=== PATIENT | male | born 1980 | race Caucasian/White ===

== ENCOUNTER 2018-01-15 09:21 | Emergency (ER) | payer SELFPAY ==
[2018-01-15 09:41] VITALS: BP 136/93; PULSE 105; RESP 18; TEMP 98; O2SAT 99
[2018-01-15] MEDS ORDERED: Lidocaine 5% Patch TD STA (10:05)
[2018-01-15] MEDS ORDERED: Lidocaine 5% Patch TD ONE (10:09)
--- NOTE | 2018-01-15 11:06 | C.PDOC ---
History Of Present Illness 37 year old male with PMHx of disc injury presents to the ED complaining of sciatica for months. Complains of pain to left buttock that radiates to his left leg down to his foot. Reports that he has done physical therapy and takes Naproxen and muscle relaxers but pain persists. States the pain "is in the bones". Denies any weakness or numbness. Time Seen by Provider: 01/15/18 09:56 Chief Complaint (Nursing): Lower Extremity Problem/Injury History Per: Patient History/Exam Limitations: no limitations Onset/Duration Of Symptoms: Days Current Symptoms Are (Timing): Still Present Past Medical History Reviewed: Historical Data, Nursing Documentation, Vital Signs Vital Signs: Last Vital Signs Temp 98.0 F 01/15/18 09:38 Pulse 105 H 01/15/18 09:38 Resp 18 01/15/18 09:38 BP 136/93 H 01/15/18 09:38 Pulse Ox 99 01/15/18 09:38 - Medical History PMH: HTN Denies: Chronic Kidney Disease Other Surgeries: Hx of surgeries Family History: States: No Known Family Hx - Social History Hx Alcohol Use: No Hx Substance Use: No - Immunization History Hx Tetanus Toxoid Vaccination: No Hx Influenza Vaccination: No Hx Pneumococcal Vaccination: No Review Of Systems Except As Marked, All Systems Reviewed And Found Negative. Musculoskeletal: Positive for: Other (left buttock pain radiating to left leg down to his left foot ) Neurological: Negative for: Weakness, Numbness Physical Exam - Physical Exam Appears: Non-toxic, No Acute Distress, Other (obese) Skin: Warm, Dry Head: Normacephalic Eye(s): bilateral: Normal Inspection Nose: Normal Oral Mucosa: Moist Neck: Supple Chest: Symmetrical Back: Other (tenderness to left buttock ) Extremity: No Pedal Edema, Capillary Refill (less than 2 sec to b/l legs), No Deformity, No Swelling Extremity: Bilateral: Atraumatic, Normal Color And Temperature, Normal ROM Neurological/Psych: Oriented x3, Normal Speech, Normal Motor, Normal Sensation, Normal Reflexes Gait: Steady ED Course And Treatment O2 Sat by Pulse Oximetry: 99 (RA) Pulse Ox Interpretation: Normal Medical Decision Making Medical Decision Making: Plan - Lidoderm patch - Ultram 50mg PO Disposition Counseled Patient/Family Regarding: Diagnosis, Need For Followup, Rx Given - Disposition Referrals: Tommy Rascon MD [Staff Provider] - Disposition: HOME/ ROUTINE Disposition Time: 11:04 Condition: STABLE Prescriptions: traMADol/Acetaminophen [Ultracet 37.5/325 mg] 1 tab PO TID PRN #15 tab PRN Reason: pain Forms: General Discharge Instructions, [facility] (Gu[place]ian), Work Excuse - POA Present On Arrival: None - Clinical Impression Clinical Impression: Sciatica - Scribe Statement The provider has reviewed the documentation as recorded by the Taniaibsusan Greer All medical record entries made by the Taniaibsusan were at my direction and personally dictated by me. I have reviewed the chart and agree that the record accurately reflects my personal performance of the history, physical exam, medical decision making, and the department course for this patient. I have also personally directed, reviewed, and agree with the discharge instructions and disposition.
== END 2018-01-15 11:23 | disposition home or self-care (01) ==
LOC: C.ER 09:21
DX: M54.30 Sciatica, unspecified side (principal); I10 Essential (primary) hypertension